=== PATIENT | male | born 1945 | race Caucasian/White ===

== ENCOUNTER 2019-05-28 13:41 | Emergency (ER) | payer MEDICARE ==
[~2019-05-28] VITALS: Ht 175.3 cm; Wt 102.3 kg
[~2019-05-28 13:41] MED LIST: ALPR0.252 PO; COU1T PO
[2019-05-28] MEDS ORDERED: methylPREDNISolone sod succ 125mg/2ml vial IV ONE (13:45)
[2019-05-28] MEDS ORDERED: ipratropium/albuterol 3ml nebule NEB ONE (13:45)
[2019-05-28] MEDS ORDERED: normal saline 1000ML IV soln IVB ONE (13:45)
--- NOTE | 2019-05-28 14:10 | NUR ---
RT AT BS
[2019-05-28 14:39] VITALS: BP 134/85
[2019-05-28] MEDS ORDERED: IPRA4AER IH (15:06)
[2019-05-28] MEDS ORDERED: ALBU8.5H8 INH (15:06)
[2019-05-28] MEDS ORDERED: PRED20TA PO (15:06)
== END 2019-05-28 15:18 | disposition home or self-care (01) ==
LOC: ER 13:42
DX: J45.901 Unspecified asthma with (acute) exacerbation (principal); R00.0 Tachycardia, unspecified; R60.0 Localized edema; Z79.899 Other long term (current) drug therapy; Z79.01 Long term (current) use of anticoagulants; Z86.718 Personal history of other venous thrombosis and embolism; Z90.49 Acquired absence of other specified parts of digestive tract
CPT/HCPCS: 71045; 93005; 94640; 94760; 96374; 99283; J2930; J7030

== ENCOUNTER 2021-09-09 05:17 | Emergency (ER) | payer MEDICARE, OTHER ==
[~2021-09-09] VITALS: Ht 175.3 cm; Wt 79.5 kg
[~2021-09-09 05:17] MED LIST changes: +ALBU8.5H17 INH
[2021-09-09 06:12] VITALS: BP 147/97
[2021-09-09 07:57] LABS: BASOPHILS % (AUTO) 0.4 % (0-1); EOSINOPHILS # (AUTO) 0.3 X10'3 (0-0.9); EOSINOPHILS % (AUTO) 5.7 % (0-6); HEMATOCRIT 44.6 % (42.0-52.0); HEMOGLOBIN 15.1 g/dl (14.0-17.9); LYMPHOCYTES # (AUTO) 1.1 X10'3 (1.1-4.8); LYMPHOCYTES % (AUTO) 19.3 % (21-51); MEAN CORPUSCULAR HEMOGLOBIN 30.4 PG (27.0-31.0); MEAN CORPUSCULAR HGB CONC 33.8 g/dL (33.0-36.5); MEAN CORPUSCULAR VOLUME 89.8 FL (78-98); MEAN PLATELET VOLUME 7.7 FL (7.4-10.4); MONOCYTES # (AUTO) 0.5 X10'3 (0-0.9); NEUTROPHILS # (AUTO) 3.8 X10'3 (1.8-7.7); NEUTROPHILS % (AUTO) 66.6 % (42-75); PLATELET COUNT 316 X10'3 (140-440); RED BLOOD COUNT 4.97 X10'6 (4.70-6.10); RED CELL DISTRIBUTION WIDTH 13.5 % (11.5-14.5); WHITE BLOOD COUNT 5.7 X10'3 (4.5-11.0)
[2021-09-09 08:20] LABS: APTT 54 SECONDS (22-32)
[2021-09-09 08:21] LABS: ALANINE AMINOTRANSFERASE 24 U/L (12-78); ALBUMIN/GLOBULIN RATIO 0.9 (1.1-1.5); ALKALINE PHOSPHATASE 80 IU/L (46-116); ANION GAP 5 (8-16); ASPARTATE AMINO TRANSFERASE 19 U/L (10-37); BILIRUBIN,TOTAL 0.3 MG/DL (0.1-1.0); BLOOD UREA NITROGEN 16 MG/DL (7-18); BUN/CREATININE RATIO 16.2 (5.4-32.0); CALCIUM 8.7 MG/DL (8.5-10.1); CHLORIDE 108 MMOL/L (99-107); CREATININE 0.99 MG/DL (0.60-1.10); GLUCOSE 108 MG/DL (70-104); SODIUM 144 MMOL/L (135-145); TOTAL CARBON DIOXIDE 30.6 MMOL/L (24-32); TOTAL PROTEIN 8.3 G/DL (6.4-8.2); eGFR 74 ML/MIN
[2021-09-09 08:22] LABS: D-DIMER < 0.19 MG/L FEU (0-0.50)
[2021-09-09 08:30] LABS: MAGNESIUM 2.2 MG/DL (1.5-2.4); PHOSPHORUS 3.5 MG/DL (2.3-4.5)
== END 2021-09-09 09:34 | disposition home or self-care (01) ==
LOC: ER 05:18
DX: R06.00 Dyspnea, unspecified (principal); R06.02 Shortness of breath; J45.901 Unspecified asthma with (acute) exacerbation; Z86.711 Personal history of pulmonary embolism; Z86.718 Personal history of other venous thrombosis and embolism; Z90.49 Acquired absence of other specified parts of digestive tract; Z79.899 Other long term (current) drug therapy; Z79.01 Long term (current) use of anticoagulants
CPT/HCPCS: 36415; 71045; 80053; 83735; 83880; 84100; 84484; 85025; 85379; 85610; 85730; 93005; 99285